=== PATIENT | female | born 1940 | race Hispanic/Latino ===

== ENCOUNTER 2020-07-05 10:44 | Emergency (ER) | payer MEDICARE ==
[2020-07-05] MEDS ORDERED: CEFTRIAXONE SODIUM 2 GM VIAL ONE (11:16)
[2020-07-05] MEDS ORDERED: ONDANSETRON HCL 4 MG/2 ML VIAL ONE (11:16)
[2020-07-05 11:26] LABS: BASOPHILS % (AUTO) 0.2 % (0.0-5.0); HEMATOCRIT 36.9 % (36-48); LYMPHOCYTES % (AUTO) 18.6 % (21.0-51.0); MEAN CORPUSCULAR HEMOGLOBIN 32.3 pg (27.0-33.0); MEAN CORPUSCULAR HGB CONC 32.5 g/dL (32.0-36.0); MEAN CORPUSCULAR VOLUME 99.2 fL (79-99); MONOCYTES % (AUTO) 13.8 % (3.0-13.0); NEUTROPHILS % (AUTO) 67.2 % (40.0-77.0); PLATELET COUNT (AUTO) 259 K/uL (130-400); RED BLOOD CELL COUNT(AUTO) 3.72 MIL/uL (4.00-5.50); RED CELL DISTRIBUTION WIDTH 13.3 % (11.0-15.5)
[2020-07-05 11:42] LABS: CARBON DIOXIDE 25 mmol/L (21-32); CHLORIDE 98 mmol/L (101-111); GLOMERULAR FILTR. RATE CALC 57 mL/min (>60); GLUCOSE,RANDOM 228 mg/dL (70-105); POTASSIUM 3.8 mmol/L (3.5-5.1); SODIUM SERUM 136 mmol/L (136-145); UREA NITROGEN, BLOOD 18 mg/dL (7-18)
[2020-07-05 11:45] LABS: INR 0.92 (0.85-1.15)
[2020-07-05 11:55] LABS: ALANINE AMINOTRANSFERASE 29 U/L (12-78); ALBUMIN 3.6 g/dL (3.5-5.0); ASPARTATE AMINOTRANSFERASE 33 U/L (10-37); BILIRUBIN,TOTAL 0.5 mg/dL (0.2-1.0); CREATINE KINASE, TOTAL 160 U/L (21-232); MYOGLOBIN 100 ng/mL (10-92); TOTAL PROTEIN, SERUM 8.3 g/dL (6.0-8.3); TROPONIN I < 0.04 ng/mL (0.00-0.06)
[2020-07-05 13:10] LABS: APPEARANCE,URINE Clear (CLEAR); BILIRUBIN,URINE Negative (NEGATIVE); COLOR,URINE Yellow (YELLOW); GLUCOSE, URINE (UA) >=1000 mg/dL (NEGATIVE); KETONES,URINE 40 mg/dL (NEGATIVE); LEUKOCYTE ESTERASE ,URINE Trace (NEGATIVE); NITRATE,URINE Positive (NEGATIVE); OCCULT BLOOD,URINE Trace (NEGATIVE); PROTEIN,URINE POS 1+ mg/dL (NEGATIVE); UROBILINOGEN,URINE 0.2 mg/dL (0.2-1.0)
[2020-07-05 13:35] LABS: BACTERIA,URINE Rare /HPF (None Seen); RBC,URINE 0-1 /HPF (0-1); SQUAMOUS EPITHELIAL CELL,UR Rare /HPF (0-2)
== END 2020-07-05 15:08 | disposition home or self-care (01) ==
LOC: EDH 10:44
DX: U07.1 COVID-19 (principal); E11.9 Type 2 diabetes mellitus without complications; I10 Essential (primary) hypertension
CPT/HCPCS: 36415; 71045; 80053; 81001; 82550; 83605; 83874; 84145; 84484; 85025; 85378; 85610; 85730; 87040 ×2; 87088; 87426; 93005; 96374; 96375; 99285; J0696; J2405

== ENCOUNTER 2020-07-10 17:10 | Inpatient (IN) | payer MEDICARE ==
[~2020-07-10] VITALS: Ht 152.4 cm; Wt 61.5 kg
[2020-07-10] MEDS ORDERED: METHYLPREDNISOLONE SOD SUCC 40MG/ML 1ML ONE (17:32)
[2020-07-10] MEDS ORDERED: CEFTRIAXONE SODIUM 2 GM VIAL ONE (17:32)
[2020-07-10] MEDS ORDERED: INSULIN HUMULIN R 100 UNIT/ML 3ML ONE (18:54)
[2020-07-10] MEDS ORDERED: ACETAMINOPHEN 325 MG TAB PO PRN ×2 (19:15)
[2020-07-10] MEDS: AZITHROMYCIN 500MG+NS 250ML 250 ML IV SCH (19:15)
[2020-07-10] MEDS ORDERED: ERGOCALCIFEROL (VITAMIN D2) 50,000 UNIT CAPSULE PO ONE (19:15)
[2020-07-10] MEDS ORDERED: ONDANSETRON HCL 4 MG/2 ML VIAL IV PRN (19:15)
[2020-07-10] MEDS: DOXYCYCLINE 100MG+NS 250ML 250 ML IV SCH (19:15)
[2020-07-10] MEDS ORDERED: ENOXAPARIN SODIUM 60 MG/0.6 ML SQ ONE (20:15)
[2020-07-10] MEDS ORDERED: AZITHROMYCIN 500MG+NS 250ML 250 ML IV ONE (20:16)
[2020-07-10] MEDS ORDERED: ERGOCALCIFEROL (VITAMIN D2) 50,000 UNIT CAPSULE ONE (20:16)
[2020-07-10] MEDS ORDERED: ACETYLCYSTEINE 600 MG CAPSULE ONE (20:32)
[2020-07-10] MEDS: METHYLPREDNISOLONE SOD SUCC 40MG/ML 1ML IVP SCH (21:00)
[2020-07-10] MEDS: ENOXAPARIN SODIUM 60 MG/0.6 ML SQ SCH (21:00)
[2020-07-10] MEDS ORDERED: DOXYCYCLINE HYCLATE 100 MG TABLET PO SCH (21:00)
[2020-07-10] MEDS: ACETYLCYSTEINE 600 MG CAPSULE PO SCH (21:00)
[2020-07-10] MEDS ORDERED: DOXYCYCLINE 100MG+NS 250ML 250 ML IV ONE (21:29)
[2020-07-10] MEDS ORDERED: IOHEXOL-350 75 ML VIAL IV ONE (21:46)
[2020-07-10 22:38] VITALS: BP 125/55
[2020-07-11 04:01] VITALS: BP_SYST 133; BP_SYST 157; BP_DIAS 59; BP_DIAS 68
[2020-07-11] MEDS: INSULIN HUMULIN R 100 UNIT/ML 3ML SQ SCH ×7 (06:13→21:29)
[2020-07-11] MEDS: DOXYCYCLINE 100MG+NS 250ML 250 ML IV SCH (06:49)
[2020-07-11 08:00] VITALS: BP 131/62
[2020-07-11] MEDS: ENOXAPARIN SODIUM 60 MG/0.6 ML SQ SCH ×2 (09:00→21:32)
[2020-07-11] MEDS: ACETYLCYSTEINE 600 MG CAPSULE PO SCH ×2 (09:00→20:26)
[2020-07-11] MEDS: METHYLPREDNISOLONE SOD SUCC 40MG/ML 1ML IVP SCH ×3 (09:02→20:25)
[2020-07-11] MEDS: ASCORBIC ACID 500 MG TAB PO SCH (09:03)
[2020-07-11] MEDS: DOXYCYCLINE HYCLATE 100 MG TABLET PO SCH ×2 (09:03→20:25)
[2020-07-11] MEDS ORDERED: PHARMACY COMMUNICATION MISC SCH (09:15)
[2020-07-11] MEDS ORDERED: HYDRALAZINE HCL 20 MG/ML VIAL IV PRN (10:15)
[2020-07-11 11:30] VITALS: BP 134/70
[2020-07-11] MEDS: ZINC SULFATE 220 CAPSULE PO SCH (12:39)
--- NOTE | 2020-07-11 13:40 | NUR ---
RUBINA NOTE/IA UNABLE TO MEET WITH PATIENT IN ROOM, NEXT OF KIN CALLED, JUAN MANUEL DONALD. PER DAUGHTER IN LAW, PATIENT LIVES WITH HER AND HIS SON, IS INDEPENDENT WITH ADLS, HAS USE OF WALKER AND NEBULIZER, HAS [facility] PROVIDER SERVICES AT 40HR PER WEEK, USES [facility] [place] AND FEELS SAFE FOR PATIENT TO RETURN HOME ONCE DISCHARGED FROM HOSPITAL. Addendum: 07/11/20 at 1753 by BRITTANI SCHULTE RN CM Amended: Links added.
[2020-07-11] MEDS ORDERED: REMDESIVIR (EUA) 520 200 MG in SODIUM CHLORIDE 0.9% 250 ML IV ONE (15:00)
[2020-07-11] MEDS ORDERED: COMPOUND IV REFRIGERATED 1 EACH IVSOLN MISC PRN (15:00)
--- NOTE | 2020-07-11 15:05 | NUR ---
CHART CHECK COMPLETED. Pt IS A 80 Y.O. FEMALE ADMITTED SECONDARY TO COVID-19, ACUTE RESPIRATORY FAILURE. Pt HAS A PAST MEDICAL HISTORY SIGNIFICANT FOR DMII, HYPERTENSION. Pt CURRENTLY ON REGULAR TEXTURE,THIN LIQUID DIET (HEART HEALTHY). PLEASE REQUEST FORMAL SKILLED SPEECH/SWALLOW EVALUATION IF Pt PRESENTS WITH +S/S OF ASPIRATION SUCH COUGH RESPONSE, THROAT CLEAR, OR WET VOCAL QUALITY DURING P.O. Addendum: 07/11/20 at 1506 by BHUPINDER GONZALEZ, SPT ST Amended: Links added.
[2020-07-11 15:30] VITALS: BP 156/63
[2020-07-11 20:00] VITALS: BP 152/69
[2020-07-11] MEDS: AZITHROMYCIN 500MG+NS 250ML 250 ML IV SCH (20:26)
[2020-07-11] MEDS: INSULIN GLARGINE 100 UNITS/ML 10 ML VIAL SQ SCH (21:27)
--- NOTE | 2020-07-11 21:45 | NUR ---
plasma spoke to patient regarding pending plasma , per patient will like to discuss with patients family including krystina bojorquez daughter in law , called mrs bojorquez explained in detail regarding order for plasma , family agree with convalescent plasma as ordered, family members spoke to patient via phone all agreed with plasma transfusion , consent will be obtained from patient
[2020-07-11] MEDS: PHARMACY COMMUNICATION MISC SCH (23:09)
[2020-07-12] VITALS: BP 148/70
[2020-07-12 04:00] VITALS: BP 161/82
[2020-07-12] MEDS: INSULIN HUMULIN R 100 UNIT/ML 3ML SQ SCH ×7 (06:02→21:32)
[2020-07-12 08:10] VITALS: BP 151/78
[2020-07-12] MEDS: METHYLPREDNISOLONE SOD SUCC 40MG/ML 1ML IVP SCH ×3 (09:54→20:01)
[2020-07-12] MEDS: DOXYCYCLINE HYCLATE 100 MG TABLET PO SCH ×2 (09:55→20:02)
[2020-07-12] MEDS: ENOXAPARIN SODIUM 60 MG/0.6 ML SQ SCH ×2 (09:56→20:02)
[2020-07-12] MEDS: ASCORBIC ACID 500 MG TAB PO SCH (09:56)
[2020-07-12] MEDS: ACETYLCYSTEINE 600 MG CAPSULE PO SCH ×2 (09:57→20:02)
[2020-07-12] MEDS: ZINC SULFATE 220 CAPSULE PO SCH (11:52)
[2020-07-12 12:26] VITALS: BP 154/76
[2020-07-12] MEDS: REMDESIVIR (EUA) 520 100 MG in SODIUM CHLORIDE 0.9% 250 ML IV SCH (16:16)
[2020-07-12 16:43] VITALS: BP 105/72
[2020-07-12] MEDS: PHARMACY COMMUNICATION MISC SCH (19:29)
[2020-07-12] MEDS: AZITHROMYCIN 500MG+NS 250ML 250 ML IV SCH (20:03)
[2020-07-12 20:16] VITALS: BP 167/79
[2020-07-12] MEDS: INSULIN GLARGINE 100 UNITS/ML 10 ML VIAL SQ SCH (21:33)
--- NOTE | 2020-07-12 23:00 | NUR ---
plasma second unit convalescent plasma started as ordered see transfusion record
[2020-07-13 00:16] VITALS: BP 141/65
--- NOTE | 2020-07-13 00:50 | NUR ---
plasma plasma transfusion complete, no reaction noted, see transfusion record, tolerated well
[2020-07-13 04:16] VITALS: BP 150/75
[2020-07-13] MEDS: INSULIN HUMULIN R 100 UNIT/ML 3ML SQ SCH ×7 (06:04→22:08)
[2020-07-13 07:49] VITALS: BP 152/65
[2020-07-13] MEDS: DOXYCYCLINE HYCLATE 100 MG TABLET PO SCH ×2 (08:59→22:07)
[2020-07-13] MEDS: ASCORBIC ACID 500 MG TAB PO SCH (09:00)
[2020-07-13] MEDS: ACETYLCYSTEINE 600 MG CAPSULE PO SCH ×2 (09:00→21:00)
[2020-07-13] MEDS: METHYLPREDNISOLONE SOD SUCC 40MG/ML 1ML IVP SCH ×3 (09:00→22:07)
[2020-07-13] MEDS: ENOXAPARIN SODIUM 60 MG/0.6 ML SQ SCH ×2 (09:01→22:09)
[2020-07-13] MEDS ORDERED: POTASSIUM CHLORIDE 10MEQ/100ML 100 ML IV PRN (11:30)
[2020-07-13] MEDS ORDERED: POTASSIUM CHLORIDE 10% ELIXIR 20 MEQ/15 ML UDCUP PO PRN (11:30)
[2020-07-13] MEDS ORDERED: LIDOCAINE HCL-MPF 1% 2ML VIAL IV PRN (11:30)
[2020-07-13 12:01] VITALS: BP 154/75
[2020-07-13] MEDS: ZINC SULFATE 220 CAPSULE PO SCH (12:19)
[2020-07-13] MEDS: REMDESIVIR (EUA) 520 100 MG in SODIUM CHLORIDE 0.9% 250 ML IV SCH (14:48)
[2020-07-13 15:24] VITALS: BP 142/87
--- NOTE | 2020-07-13 15:51 | NUR ---
PT had an uneventful day, pt received meds as ordered, and ANESTHESIOLOGY TEACHER and MD spoke to pt regarding decreasing oxygen and assessing how pt sao2 are and how well she tolerates lower level of oxygen, pt agree with plan of care, pt had no c/o pain or discomfort
[2020-07-13] MEDS: AZITHROMYCIN 500MG+NS 250ML 250 ML IV SCH (18:16)
[2020-07-13 20:16] VITALS: BP 159/76
[2020-07-13] MEDS: INSULIN GLARGINE 100 UNITS/ML 10 ML VIAL SQ SCH (22:09)
[2020-07-14 00:16] VITALS: BP 157/72
[2020-07-14 04:16] VITALS: BP 143/70
[2020-07-14] MEDS: PHARMACY COMMUNICATION MISC SCH (05:39)
[2020-07-14] MEDS: INSULIN HUMULIN R 100 UNIT/ML 3ML SQ SCH ×7 (05:40→20:28)
[2020-07-14 07:45] VITALS: BP 149/74
[2020-07-14] MEDS: METHYLPREDNISOLONE SOD SUCC 40MG/ML 1ML IVP SCH ×3 (08:40→20:26)
[2020-07-14] MEDS: ACETYLCYSTEINE 600 MG CAPSULE PO SCH ×2 (08:41→20:26)
[2020-07-14] MEDS: DOXYCYCLINE HYCLATE 100 MG TABLET PO SCH ×2 (08:41→20:26)
[2020-07-14] MEDS: ASCORBIC ACID 500 MG TAB PO SCH (08:41)
[2020-07-14] MEDS: ENOXAPARIN SODIUM 60 MG/0.6 ML SQ SCH ×2 (08:42→20:29)
[2020-07-14] MEDS ORDERED: BIOTENE 44.3 ML SOLUTION MM PRN (10:30)
[2020-07-14] MEDS ORDERED: PHARMACY COMMUNICATION MISC SCH (10:30)
[2020-07-14 11:59] VITALS: BP 149/72
[2020-07-14] MEDS: ZINC SULFATE 220 CAPSULE PO SCH (12:00)
[2020-07-14] MEDS: REMDESIVIR (EUA) 520 100 MG in SODIUM CHLORIDE 0.9% 250 ML IV SCH (15:37)
[2020-07-14 16:11] VITALS: BP 146/64
--- NOTE | 2020-07-14 17:18 | NUR ---
PT able to linwood a shower today, pt states she is having less SOB with exertion,meds given as ordered, once pt is able to tolerate oxygen via nasal canal and is medically stable, she will be dcd home
[2020-07-14] MEDS: AZITHROMYCIN 500MG+NS 250ML 250 ML IV SCH (18:11)
[2020-07-14 20:20] VITALS: BP 162/81
[2020-07-14] MEDS: INSULIN GLARGINE 100 UNITS/ML 10 ML VIAL SQ SCH (20:27)
[2020-07-15] VITALS (7 sets, daily range): BP systolic 135–162; BP diastolic 65–88
[2020-07-15] MEDS: PHARMACY COMMUNICATION MISC SCH (05:13)
[2020-07-15] MEDS: INSULIN HUMULIN R 100 UNIT/ML 3ML SQ SCH ×7 (06:26→21:21)
[2020-07-15] MEDS: POTASSIUM CHLORIDE 20 MEQ ERTAB PO PRN ×2 (07:36→22:48)
[2020-07-15] MEDS: ENOXAPARIN SODIUM 60 MG/0.6 ML SQ SCH ×2 (09:38→20:52)
[2020-07-15] MEDS: DOXYCYCLINE HYCLATE 100 MG TABLET PO SCH ×2 (09:38→20:52)
[2020-07-15] MEDS: ASCORBIC ACID 500 MG TAB PO SCH (09:38)
[2020-07-15] MEDS: METHYLPREDNISOLONE SOD SUCC 40MG/ML 1ML IVP SCH ×3 (09:38→20:52)
[2020-07-15] MEDS: ZINC SULFATE 220 CAPSULE PO SCH (11:30)
[2020-07-15] MEDS: ACETYLCYSTEINE 600 MG CAPSULE PO SCH ×2 (11:30→20:52)
[2020-07-15] MEDS: REMDESIVIR (EUA) 520 100 MG in SODIUM CHLORIDE 0.9% 250 ML IV SCH (14:21)
[2020-07-15] MEDS: AZITHROMYCIN 500MG+NS 250ML 250 ML IV SCH (20:51)
[2020-07-15] MEDS: INSULIN GLARGINE 100 UNITS/ML 10 ML VIAL SQ SCH (21:22)
[2020-07-16] MEDS: POTASSIUM CHLORIDE 20 MEQ ERTAB PO PRN ×4 (01:28→16:51)
[2020-07-16 03:49] VITALS: BP 148/79
[2020-07-16] MEDS: PHARMACY COMMUNICATION MISC SCH (05:10)
[2020-07-16] MEDS: INSULIN HUMULIN R 100 UNIT/ML 3ML SQ SCH ×7 (05:50→21:25)
[2020-07-16 08:30] VITALS: BP_SYST 132; BP_SYST 134; BP_DIAS 72; BP_DIAS 80
[2020-07-16] MEDS: ACETYLCYSTEINE 600 MG CAPSULE PO SCH ×2 (08:51→21:00)
[2020-07-16] MEDS: ASCORBIC ACID 500 MG TAB PO SCH (08:51)
[2020-07-16] MEDS: DOXYCYCLINE HYCLATE 100 MG TABLET PO SCH ×2 (08:51→21:18)
[2020-07-16] MEDS: ENOXAPARIN SODIUM 60 MG/0.6 ML SQ SCH ×2 (08:52→21:20)
[2020-07-16] MEDS: METHYLPREDNISOLONE SOD SUCC 40MG/ML 1ML IVP SCH ×3 (09:01→21:18)
[2020-07-16] MEDS: ZINC SULFATE 220 CAPSULE PO SCH (11:47)
[2020-07-16 12:04] VITALS: BP 138/66
[2020-07-16 16:35] VITALS: BP 151/84
[2020-07-16 20:51] VITALS: BP 151/77
[2020-07-16] MEDS: AZITHROMYCIN 500MG+NS 250ML 250 ML IV SCH ×2 (21:17→21:30)
[2020-07-16] MEDS: INSULIN GLARGINE 100 UNITS/ML 10 ML VIAL SQ SCH (21:24)
[2020-07-16 23:55] VITALS: BP 148/89
[2020-07-17 03:55] VITALS: BP 130/74
[2020-07-17] MEDS: INSULIN HUMULIN R 100 UNIT/ML 3ML SQ SCH ×7 (05:36→20:43)
--- NOTE | 2020-07-17 08:10 | NUR ---
Declined Hospice SW unable to meet w/pt. and telephoned PER/Yoselin Brink, who reported that she was informed about hospice option by physician yesterday, she spoke w/pt. at length last night and decision made not to go home with hospice. Instead, pt. agrees to remain hospitalized until medically cleared. PER reports that pt. resides at home with son & DIL, has HH and Provider services/40h weekly through [facility], utilizes [email or web address] and PER provides transportation for pt.PER voiced no SS needs or concerns. CM made aware.
[2020-07-17 08:36] VITALS: BP 156/86
[2020-07-17] MEDS: ASCORBIC ACID 500 MG TAB PO SCH (10:34)
[2020-07-17] MEDS: DOXYCYCLINE HYCLATE 100 MG TABLET PO SCH ×2 (10:34→20:57)
[2020-07-17] MEDS: METHYLPREDNISOLONE SOD SUCC 40MG/ML 1ML IVP SCH ×3 (10:34→20:57)
[2020-07-17] MEDS: ENOXAPARIN SODIUM 60 MG/0.6 ML SQ SCH ×2 (10:36→20:59)
[2020-07-17] MEDS: ACETYLCYSTEINE 20% 200MG/ML 4ML VIAL PO SCH ×2 (10:41→20:57)
[2020-07-17 12:10] VITALS: BP 137/72
[2020-07-17] MEDS: ZINC SULFATE 220 CAPSULE PO SCH (12:13)
[2020-07-17 16:49] VITALS: BP 143/71
[2020-07-17 19:00] VITALS: BP 139/68
[2020-07-17] MEDS: INSULIN GLARGINE 100 UNITS/ML 10 ML VIAL SQ SCH (20:41)
[2020-07-17] MEDS ORDERED: AZITHROMYCIN 500MG+NS 250ML 250 ML IV SCH (21:00)
[2020-07-18] VITALS (7 sets, daily range): BP systolic 119–192; BP diastolic 59–82
[2020-07-18] MEDS: INSULIN HUMULIN R 100 UNIT/ML 3ML SQ SCH ×7 (07:24→22:19)
[2020-07-18] MEDS: DOXYCYCLINE HYCLATE 100 MG TABLET PO SCH ×2 (09:56→21:59)
[2020-07-18] MEDS: ENOXAPARIN SODIUM 60 MG/0.6 ML SQ SCH ×2 (09:56→21:57)
[2020-07-18] MEDS: ASCORBIC ACID 500 MG TAB PO SCH (09:56)
[2020-07-18] MEDS: ACETYLCYSTEINE 20% 200MG/ML 4ML VIAL PO SCH ×2 (09:59→22:07)
[2020-07-18] MEDS: METHYLPREDNISOLONE SOD SUCC 40MG/ML 1ML IVP SCH ×3 (10:01→21:53)
[2020-07-18] MEDS: ZINC SULFATE 220 CAPSULE PO SCH (11:01)
--- NOTE | 2020-07-18 16:23 | NUR ---
CM Note: pt declined [facility], agreeable for home w/hospice CM spoke to pt regarding [facility], pt declined placement, requested for CM to call son/daughter in law. Spoke to daughter in law regarding, aware pt declined placement, at this time daughter in law verbalized that son and herself spoke to pt and have decided they will take patient home w/hospice. Informed Dr Norton of decision, agreeable to dcp, order entered hospice to evaluate and treat, dcp to home w/hospice once arrangements made. SW made aware, said will f/u w/pt and family tomorrow. DC plan to home w/hospice once arrangements made. CM to cont to follow up.
[2020-07-18] MEDS: AZITHROMYCIN 500MG+NS 250ML 250 ML IV SCH (18:07)
[2020-07-18] MEDS ORDERED: INSULIN GLARGINE 100 UNITS/ML 10 ML VIAL SQ SCH (21:00)
[2020-07-19] VITALS: BP 153/86
[2020-07-19 04:00] VITALS: BP 154/67
[2020-07-19] MEDS: INSULIN HUMULIN R 100 UNIT/ML 3ML SQ SCH ×6 (07:30→17:33)
--- NOTE | 2020-07-19 07:55 | NUR ---
RALPH contacted pt's PER/lOesya and spoke with her about hospice again. Olesya reports that pt. declined transfer to [facility] and after discussion, decision made for pt. to return home with hospice. PER able to verbalize an understanding of hospice, medical team, comfort care at home. Verbal Choice provided to this worker with Mel Morrell LVN as witness; [facility], or any other hospice willing to accept pt. Referral faxed to [facility].
[2020-07-19 08:00] VITALS: BP 122/67
[2020-07-19] MEDS: METHYLPREDNISOLONE SOD SUCC 40MG/ML 1ML IVP SCH ×2 (09:36→15:35)
[2020-07-19] MEDS: DOXYCYCLINE HYCLATE 100 MG TABLET PO SCH (09:37)
[2020-07-19] MEDS: ASCORBIC ACID 500 MG TAB PO SCH (09:37)
[2020-07-19] MEDS: POTASSIUM CHLORIDE 20 MEQ ERTAB PO PRN ×2 (09:37→15:35)
[2020-07-19] MEDS: ENOXAPARIN SODIUM 60 MG/0.6 ML SQ SCH (09:38)
[2020-07-19] MEDS: ACETYLCYSTEINE 20% 200MG/ML 4ML VIAL PO SCH (09:38)
--- NOTE | 2020-07-19 10:45 | NUR ---
RDSCREEN - LOS X 9 Pt admitted with COVID-19,ARF. Pt tolerating Heart Healthy diet order with no complaint of GI distress,Good PO intake at 75-100%. WBC 14.3, Alb 1.9. Vitamin C and Zinc in place. Advanced age. Pt pending discharge to hospice. Recommend add 75gm CCD Recommend 60ml ProMod BID RD to continue to monitor. Please notify as additional nutrition concerns arise. Thank you. Addendum: 07/19/20 at [address] Amended: Links added.
--- NOTE | 2020-07-19 10:50 | NUR ---
OOHDNR-Sb met dtr in law Olesya Mejia in [facility], OOHDNR signed and witnessed. OOHDNR and Choice Letter provided to KIM Lewis for chart placement.
[2020-07-19 11:30] VITALS: BP 126/61
--- NOTE | 2020-07-19 11:52 | NUR ---
[facility] informed this worker that pt. has been accepted and DME has been ordered. [facility] to notify this worker once DME is delivered. RUBINA made aware.
[2020-07-19] MEDS: ZINC SULFATE 220 CAPSULE PO SCH (12:19)
--- NOTE | 2020-07-19 14:22 | NUR ---
Hospice: [facility] informed this worker that DME has been delivered to pt's home. CM made aware.
[2020-07-19] MEDS ORDERED: APIX2.5T PO (14:52)
[2020-07-19] MEDS ORDERED: DEXA6TAB PO (14:52)
--- NOTE | 2020-07-19 15:00 | NUR ---
CM Note: [facility] approved, DME delivered, EMS arranged CM spoke to Maria Antonia has approval w/[facility] at home, DME delivered at home, EMS arrange and faxed for today, primary nurse to call [facility] once pt ready to DC. Primary nurse aware. CM to cont to follow up.
[2020-07-19 16:00] VITALS: BP 139/77
--- NOTE | 2020-07-19 16:15 | NUR ---
COMPLETE REPORT GIVEN TO [facility] RN RODOLFO DIANE. MADE AWARE OF CURRENT O2 REQUIREMENTS AND NEW RX
--- NOTE | 2020-07-19 16:19 | NUR ---
SPOKE WITH PATIENTS DAUGHTER IN LAW JUAN MANUEL. MADE AWARE PATIENT IS READY FOR DISCHARGE, SHE STATED SHE IS HOME AND READY FOR HER. REVIEWED NEW RX WITH HER. ALL QUESTIONS ANSWERED
== END 2020-07-19 17:55 | DRG 177 ==
LOC: EDH 17:10 → EDHIP 19:05 → 4BH 22:04
PROVIDERS: ADMIT Internal Medicine; ATTEND Internal Medicine
PROC: XW033E5 Introduction of Remdesivir Anti-infective into Peripheral Vein, Percutaneous Approach, New Technology Group 5 (ICD-10-PCS; 2020-07-11)
PROC: XW13325 Transfusion of Convalescent Plasma (Nonautologous) into Peripheral Vein, Percutaneous Approach, New Technology Group 5 (ICD-10-PCS; principal; 2020-07-12)
PROC: XW033E5 Introduction of Remdesivir Anti-infective into Peripheral Vein, Percutaneous Approach, New Technology Group 5 (ICD-10-PCS; 2020-07-12)
DX: U07.1 COVID-19 (principal); J96.01 Acute respiratory failure with hypoxia; J12.89 Other viral pneumonia; E11.9 Type 2 diabetes mellitus without complications; I10 Essential (primary) hypertension; Z51.5 Encounter for palliative care
CPT/HCPCS: 36415; 36430; 36600; 71045; 71275; 80053; 81001; 82550; 82728; 82803; 82948; 83036; 83605; 83615; 83874; 84145; 84484; 85025; 85378; 85610; 85730; 86140; 86900; 86901; 86927; 87040; 87088; 87486; 87581; 87633; 87798; 93005; 99291; G0378; J0360; J0456; J0696; J1650; J1815; J2405; J2920; J3490; J7050; J7608; Q9967; U0003